=== PATIENT | female | born 1955 | race Two or more races ===

== ENCOUNTER 2022-04-03 09:00 | Outpatient (REF) | payer MEDICARE, SELFPAY ==
[2022-04-03 11:17] LABS: Erythrocyte Sedimentation Rate 18 MM/HR (0-20)
[2022-04-05 02:04] LABS: Lyme Abs Screen <0.90 index
== END 2022-04-03 09:01 | disposition home or self-care (01) ==
LOC: HO.LAB 09:00
PROVIDERS: Visit Provider Psychiatry & Neurology Neurology
DX: M79.604 Pain in right leg (principal)
CPT/HCPCS: 36415; 82550; 85652; 86617; 86618

== ENCOUNTER 2022-04-15 14:15 | Outpatient (REF) | payer MEDICARE, SELFPAY ==
--- NOTE | ~2022-04-15 | MR_ITS ---
EXAMINATION: MR LUMBAR SPINE WITHOUT CONTRAST CLINICAL INFORMATION: Bilateral leg pain. Lumbar radicular symptoms. COMPARISON: None available. TECHNIQUE: MRI of the lumbar spine was obtained using routine sequences without contrast. FINDINGS: Anterior wedge deformity of the T11 vertebral body with 35% loss of anterior body height. Moderate Schmorl's node in the superior endplate of T12. No residual marrow edema. Otherwise, normal anatomic alignment. Normal, homogeneous marrow signal throughout. The vertebral body heights are maintained. Moderate degenerative disease at T10-T11 and T11-T12. Mild degenerative disc disease at T12-L1 and L4-L5 with partial disc desiccation. The conus medullaris terminates at the level of L1. The distal spinal cord is normal in appearance. Mild subcutaneous edema within the soft tissues of back at L4-L5. No additional significant abnormalities of the paraspinal musculature. There is a 1.3 cm T2 hyperintense cyst in the lower pole of the left kidney (no follow-up imaging recommended based on current guidelines at the time of examination). Otherwise, limited evaluation of the intra-abdominal structures without significant abnormalities. The abdominal aorta is of normal contour and caliber. AXIAL SPINAL LEVELS: L1-L2: Shallow diffuse disc bulge. There is moderate bilateral facet joint arthropathy. There is no neural foraminal stenosis. There is no spinal canal stenosis. L2-L3: Normal annular contour. There is moderate bilateral facet joint arthropathy. There is mild right and no left neural foraminal stenosis. There is no spinal canal stenosis. L3-L4: Shallow diffuse disc bulge. There is moderate bilateral facet joint arthropathy. There is mild bilateral neural foraminal stenosis. There is narrowing of the subarticular zones with mild spinal canal stenosis centrally exacerbated by prominent dorsal epidural lipomatous tissue. L4-L5: Shallow diffuse disc bulge. There is moderate bilateral facet joint arthropathy. There is moderate left and mild right neural foraminal stenosis. There is stenosis of the right worse than left subarticular zones with mild spinal canal stenosis centrally exacerbated by prominent dorsal epidural lipomatous tissue. L5-S1: Shallow diffuse disc bulge. There is moderate to severe bilateral facet joint arthropathy. There is moderate bilateral neural foraminal stenosis. There is narrowing of the subarticular zones with no overt spinal canal stenosis centrally. MR/MR lumbar spine wo con IMPRESSION: Moderate multilevel degenerative spondyloarthropathy of the lumbar spine as described in detail above. Most notably, there are mild spinal canal stenoses at L3-L4 and L4-L5. Narrowing/stenoses of the subarticular zones from L3-S1. Moderate neural foraminal stenoses at L4-L5 and L5-S1.
== END 2022-04-15 14:16 | disposition home or self-care (01) ==
LOC: HO.MRI 14:15
PROVIDERS: Visit Provider Psychiatry & Neurology Neurology
DX: M79.604 Pain in right leg (principal); M54.16 Radiculopathy, lumbar region
CPT/HCPCS: 72148